=== PATIENT | female | born 1955 | race Caucasian/White ===

== ENCOUNTER → 2016-09-15 | Outpatient (CLI) | payer OTHER ==
[~2016-09-15] MED LIST: ASP81TEC PO; CPR500T PO; ESTR1TAB24 PO; EXEM25TA4 PO; MEDR2.5T6 PO; METO25TA6 PO; NEBI2.5T5 PO; OXYC-12 PO; TAMO20TA2 PO; VENL37.563 PO
--- OUTSIDE RECORDS SUMMARY | 2016-09-15 16:09 | XMS REPORT | Continuity of Care Document ---
Author Author [facility] Organization [facility] Address Unknown Phone Unavailable Care Team Providers Care Universal Grinder Operator Name Role Phone PHILIP WAYNE MD PCP Insurance Providers Payer Name Policy Number Subscriber Name Relationship [employer] [id number] Ansley Gayle 18 Self / Same As Patient Advance Directives Directive Response Recorded Date/Time Advance Directives No 07/15/12 11:30am Health Care Power of Motor Scooter Mechanic No 07/15/12 11:30am Organ Donor No 07/15/12 11:30am Problems No known problems or medical conditions. Medications Medication Dose Route Sig Days/Qty Instructions Order Date Discontinued Date Status Estradiol 1 Mg PO DAILY 02/27/10 04/21/10 Discontinued Medroxyprogesterone Acetate (Provera) 1 Each PO DAILY 02/27/1004/21 Discontinued Venlafaxine Hcl 37.5 Mg PO TWICE A DAY 04/21/10 Active Ciprofloxacin 1 Tab PO TWICE A DAY 14 Qty 05/22/11 07/06/12 Discontinued Nebivolol Hcl 1 Each PO DAILY 07/06/12 Active Tamoxifen Citrate 20 Mg PO DAILY 07/06/12 Active Aspirin 81 Mg PO DAILY 07/18/12 Active Oxycodone Hcl/Acetaminophen 1 Each PO NEEDED MAY TAKE 1-2 TABS BY MOUTH EVERY 4-6 HOURS NEEDED FOR PAIN. 07/18/12 Active Social History No social history. Hospital Discharge Instructions No hospital discharge instructions. Plan of Care No plan of care. Functional Status No functional status results. Allergies, Adverse Reactions, Alerts Allergen Type Severity Reaction Status Last Updated Cephalexin Allergy Mild NAUSEA/VOMITING Active 02/21/07 Immunizations Name Given Type Date of Influenza Vaccine 03/19/12 Historical Vital Signs No known vital signs results. Results No known relevant diagnostic tests, laboratory data and/or discharge summary. Procedures No known history of procedures. Encounters Encounter Location Date/Time Discharged Recurring Via [facility] 03/28/14 1:57pm
--- NOTE | 2016-09-16 20:21 | Diagnostic Imaging Report ---
Bilateral screening mammogram The current study was also evaluated with a Computer Aided Detection (CAD) system. INDICATION: Screening. No current complaints stated on the questionnaire. COMPARISON: 09/12/15. FINDINGS: The breasts are composed of heterogeneously dense parenchyma which may decrease mammographic sensitivity. Postsurgical changes and skin thickening are again noted in the left breast. There are scattered benign-appearing calcifications again noted. Allowing for technique and positional differences, no suspicious change is seen. IMPRESSION: No significant change. ACR BI-RADS Category 2: Benign findings. Result letter will be mailed to the patient. Note: At least 10% of breast cancer is not imaged by mammography. Dictated by: Dictated on workstation # [id number]
== END ==
LOC: RAD 14:33
PROVIDERS: ATTEND Internal Medicine Hematology & Oncology
DX: Z12.31 Encounter for screening mammogram for malignant neoplasm of breast (principal); C50.919 Malignant neoplasm of unspecified site of unspecified female breast
CPT/HCPCS: 77067

== ENCOUNTER → 2017-09-16 | Outpatient (CLI) | payer OTHER ==
--- NOTE | 2017-09-16 18:52 | Diagnostic Imaging Report ---
INDICATION: Routine screening. The current study was also evaluated with a Computer Aided Detection (CAD) system. Comparison is made with prior exams from 09/15/2016 and 09/12/2015. FINDINGS: Moderate parenchymal density is identified bilaterally. There are post therapeutic changes in the left breast with multiple surgical clips present. There are benign calcifications bilaterally. No dominant mass or malignant-appearing microcalcifications are seen. The axillae are unremarkable. IMPRESSION: No mammographic features suspicious for malignancy are identified. ACR BI-RADS Category 2: Benign findings. Result letter will be mailed to the patient. Note: At least 10% of breast cancer is not imaged by mammography. Dictated by: Dictated on workstation # [id number]
== END ==
LOC: RAD 14:11
PROVIDERS: ATTEND Internal Medicine Hematology & Oncology
DX: Z12.31 Encounter for screening mammogram for malignant neoplasm of breast (principal)
CPT/HCPCS: 77067

== ENCOUNTER → 2017-09-17 | Outpatient (CLI) | payer OTHER | LOC: EDSTATUS 13:52 → ONC 13:58 | PROVIDERS: ATTEND Internal Medicine Hematology & Oncology | DX: Z08 Encounter for follow-up examination after completed treatment for malignant neoplasm (principal); Z85.3 Personal history of malignant neoplasm of breast; M47.892 Other spondylosis, cervical region; Z92.21 Personal history of antineoplastic chemotherapy; Z92.3 Personal history of irradiation | CPT/HCPCS: 99213 ==

== ENCOUNTER → 2018-02-02 | Outpatient (CLI) | payer OTHER ==
[2018-02-02 05:20] LABS: MEAN PLATELET VOLUME 10.3 FL (7.4-10.4); RED BLOOD COUNT 4.19 10^6/uL (4.35-5.85); RED CELL DISTRIBUTION WIDTH 12.1 % (10.0-14.5); WHITE BLOOD COUNT 5.2 10^3/uL (4.3-11.0)
[2018-02-02 05:22] LABS: BILIRUBIN,URINE NEGATIVE (NEGATIVE); CLARITY,URINE CLEAR; COLOR,URINE YELLOW; GLUCOSE, URINE (UA) NEGATIVE (NEGATIVE); KETONES,URINE NEGATIVE (NEGATIVE); LEUKOCYTE ESTERASE ,URINE 1+ (NEGATIVE); NITRITE,URINE NEGATIVE (NEGATIVE); PH,URINE 6 (5-9); PROTEIN,URINE NEGATIVE (NEGATIVE); UROBILINOGEN,URINE NORMAL (NORMAL)
[2018-02-02 05:33] LABS: BACTERIA,URINE FEW /HPF; WBC,URINE RARE /HPF
[2018-02-02 05:34] LABS: SQUAMOUS EPITHELIAL CELL,UR 0-2 /HPF
[2018-02-02 05:39] LABS: ALANINE AMINOTRANSFERASE 18 U/L (0-55); ALBUMIN 4.2 GM/DL (3.2-4.5); ALKALINE PHOSPHATASE 56 U/L (40-136); BILIRUBIN,TOTAL 0.5 MG/DL (0.1-1.0); BUN/CREATININE RATIO 26; CALCIUM 9.2 MG/DL (8.5-10.1); CARBON DIOXIDE 23 MMOL/L (21-32); CHLORIDE 105 MMOL/L (98-107); CHOLESTEROL 212 MG/DL (< 200); CREATININE SERUM 0.73 MG/DL (0.60-1.30); GFR ESTIMATED > 60; GLUCOSE 113 MG/DL (70-105); HDL CHOLESTEROL 43 MG/DL (40-60); POTASSIUM 4.2 MMOL/L (3.6-5.0); SODIUM 138 MMOL/L (135-145); TOTAL PROTEIN 6.7 GM/DL (6.4-8.2); TRIGLYCERIDES 148 MG/DL (<150); VLDL CHOLESTEROL 30 MG/DL (5-40)
== END ==
LOC: LAB 05:02
PROVIDERS: ATTEND Family Medicine
DX: I10 Essential (primary) hypertension (principal); Z85.3 Personal history of malignant neoplasm of breast
CPT/HCPCS: 36415; 80053; 80061; 81000; 84443; 85027

== ENCOUNTER 2018-06-20 06:59 | Inpatient (IN) | payer OTHER ==
[2018-06-20] VITALS (14 sets, daily range): BP systolic 95–137; BP diastolic 45–75
[~2018-06-20] VITALS: Ht 170.2 cm; Wt 80.7 kg
[2018-06-20] MEDS ORDERED: DILTIAZEM 25 MG/5 ML INJ (CARDIZEM) VIAL ONE (07:13)
[2018-06-20 07:27] LABS: BASOPHILS % (AUTO) 1 % (0-10); EOSINOPHILS # (AUTO) 0.2 10^3/uL (0.0-0.3); EOSINOPHILS % (AUTO) 3 % (0-10); HEMATOCRIT 41 % (35-52); HEMOGLOBIN 14.4 G/DL (11.5-16.0); LYMPHOCYTES # (AUTO) 2.5 X 10^3 (1.0-4.0); LYMPHOCYTES % (AUTO) 37 % (12-44); MEAN CORPUSCULAR HEMOGLOBIN 33 PG (25-34); MEAN CORPUSCULAR HGB CONC 35 G/DL (32-36); MEAN CORPUSCULAR VOLUME 93 FL (80-99); MEAN PLATELET VOLUME 10.6 FL (7.4-10.4); MONOCYTES # (AUTO) 0.5 X 10^3 (0.0-1.0); MONOCYTES % (AUTO) 8 % (0-12); NEUTROPHILS # (AUTO) 3.4 X 10^3 (1.8-7.8); NEUTROPHILS % (AUTO) 51 % (42-75); PLATELET COUNT 225 10^3/uL (130-400); RED CELL DISTRIBUTION WIDTH 12.2 % (10.0-14.5); WHITE BLOOD COUNT 6.6 10^3/uL (4.3-11.0)
[2018-06-20] MEDS ORDERED: ASPIRIN 81 MG CHEW (CHILDREN'S ASA) PO ONE (07:30)
[2018-06-20] MEDS ORDERED: DILTIAZEM 25 MG/5 ML INJ (CARDIZEM) VIAL IVP ONE (07:30)
[2018-06-20] MEDS ORDERED: DILTIAZEM INJECTION 125 MG in NS (IVPB) 100 ML IV SCH (07:30)
[2018-06-20 07:42] LABS: INR 0.8 (0.8-1.4); PROTHROMBIN TIME PATIENT 11.4 SEC (12.2-14.7)
[2018-06-20 07:50] LABS: ALANINE AMINOTRANSFERASE 20 U/L (0-55); ALBUMIN 4.3 GM/DL (3.2-4.5); ALKALINE PHOSPHATASE 65 U/L (40-136); BILIRUBIN,TOTAL 0.5 MG/DL (0.1-1.0); BUN/CREATININE RATIO 17; CALCIUM 9.7 MG/DL (8.5-10.1); CARBON DIOXIDE 23 MMOL/L (21-32); CHLORIDE 105 MMOL/L (98-107); GFR ESTIMATED > 60; GLUCOSE 109 MG/DL (70-105); MAGNESIUM 2.2 MG/DL (1.8-2.4); POTASSIUM 4.1 MMOL/L (3.6-5.0); SODIUM 140 MMOL/L (135-145); TOTAL PROTEIN 6.6 GM/DL (6.4-8.2)
[2018-06-20] MEDS ORDERED: ENOXAPARIN 80 MG/0.8 ML (LOVENOX) SYR SC ONE (08:00)
--- NOTE | 2018-06-20 08:00 | Diagnostic Imaging Report ---
CHEST 1 VIEW, AP/PA ONLY Indication: Chest pain Comparison: 04/21/2010 Findings: No focal airspace disease in the visualized lungs. Please note that the posterior lower lobes are poorly evaluated by portable radiography. No pleural effusion or pneumothorax. Normal cardiomediastinal silhouette. There are surgical changes from ACDF in the cervical spine. Additional surgical clips present in the region of the left breast. Impression: No acute cardiopulmonary process by portable radiography. Dictated by: Dictated on workstation # [id number]
--- NOTE | 2018-06-20 08:06 | ED Cardiac General ---
History of Present Illness General Chief Complaint: Cardiac/General Problems Stated Complaint: CP Source: patient Exam Limitations: no limitations History of Present Illness Date Seen by Provider: Jun 20, 2018 Time Seen by Provider: 07:00 Initial Comments This 61-year-old white female presents with palpitations and shortness of breath that occurred last night precipitating her presentation to the emergency department this morning. Patient has had multiple episodes that have been self- limited in the past year. Patient denies previous documented cardiac disease. She had no significant chest pain, diaphoresis, nausea or vomiting. Allergies and Home Medications Allergies Coded Allergies: cephalexin (Unverified Allergy, Mild, NAUSEA/VOMITING, 02/21/07) Home Medications Exemestane 25 Mg Tablet, 25 MG PO DAILY, (Reported) Metoprolol Tartrate 25 Mg Tablet, 25 MG PO DAILY, (Reported) Venlafaxine Hcl 37.5 Mg Tab.osm.24, 37.5 MG PO BID, (Reported) Patient Home Medication List Home Medication List Reviewed: Yes Review of Systems Review of Systems Constitutional: No chills EENTM: No Double Vision Respiratory: Denies Cough; SOA at Rest Cardiovascular: Denies Chest Pain; Palpitations Gastrointestinal: Denies Abdominal Pain Genitourinary: Denies Burning Musculoskeletal: No back pain Skin: No change in color Psychiatric/Neurological: No Symptoms Reported Endocrine: No Symptoms Reported Hematologic/Lymphatic: No Symptoms Reported Past Wwdlsxt-Jweoly-Tetwet Hx Past Med/Social Hx: Reviewed Nursing Past Med/Soc Hx Patient Social History Recent Foreign Travel: No Contact w/Someone Who Travel: No Immunizations Up To Date Date of Influenza Vaccine: Mar 19, 2012 Past Medical History Reproductive Disorders: No Physical Exam Vital Signs Capillary Refill : Height, Weight, BMI Height: 5'7.00" Weight: 170lbs. oz. 77.790836lg; BMI Method:Stated General Appearance: No Apparent Distress, WD/WN HEENT: Normal ENT Inspection Neck: Normal Inspection Respiratory: Lungs Clear Cardiovascular: Tachycardia Gastrointestinal: Normal Bowel Sounds, Soft Extremity: Normal Inspection Neurologic/Psychiatric: Oriented x3, No Motor/Sensory Deficits, Normal Mood/ Affect Skin: Normal Color, Warm/Dry Progress/Results/Core Measures Results/Orders Lab Results Laboratory Tests Test 06/20/18 07:13 Range/Units White Blood Count 6.6 4.3-11.0 10^3/uL Red Blood Count 4.40 4.35-5.85 10^6/uL Hemoglobin 14.4 11.5-16.0 G/DL Hematocrit 41 35-52 % Mean Corpuscular Volume 93 80-99 FL Mean Corpuscular Hemoglobin 33 25-34 PG Mean Corpuscular Hemoglobin Concent 35 32-36 G/DL Red Cell Distribution Width 12.2 10.0-14.5 % Platelet Count 225 130-400 10^3/uL Mean Platelet Volume 10.6 H 7.4-10.4 FL Neutrophils (%) (Auto) 51 42-75 % Lymphocytes (%) (Auto) 37 12-44 % Monocytes (%) (Auto) 8 0-12 % Eosinophils (%) (Auto) 3 0-10 % Basophils (%) (Auto) 1 0-10 % Neutrophils # (Auto) 3.4 1.8-7.8 X 10^3 Lymphocytes # (Auto) 2.5 1.0-4.0 X 10^3 Monocytes # (Auto) 0.5 0.0-1.0 X 10^3 Eosinophils # (Auto) 0.2 0.0-0.3 10^3/uL Basophils # (Auto) 0.0 0.0-0.1 10^3/uL Prothrombin Time 11.4 L 12.2-14.7 SEC INR Comment 0.8 0.8-1.4 Activated Partial Thromboplast Time 29 24-35 SEC Sodium Level 140 135-145 MMOL/L Potassium Level 4.1 3.6-5.0 MMOL/L Chloride Level 105 98-107 MMOL/L Carbon Dioxide Level 23 21-32 MMOL/L Anion Gap 12 5-14 MMOL/L Blood Urea Nitrogen 15 7-18 MG/DL Creatinine 0.90 0.60-1.30 MG/DL Estimat Glomerular Filtration Rate > 60 BUN/Creatinine Ratio 17 Glucose Level 109 H 70-105 MG/DL Calcium Level 9.7 8.5-10.1 MG/DL Corrected Calcium 9.5 8.5-10.1 MG/DL Magnesium Level 2.2 1.8-2.4 MG/DL Total Bilirubin 0.5 0.1-1.0 MG/DL Aspartate Amino Transf (AST/SGOT) 15 5-34 U/L Alanine Aminotransferase (ALT/SGPT) 20 0-55 U/L Alkaline Phosphatase 65 40-136 U/L Myoglobin 46.0 10.0-92.0 NG/ML Troponin I < 0.30 <0.30 NG/ML Total Protein 6.6 6.4-8.2 GM/DL Albumin 4.3 3.2-4.5 GM/DL My Orders Orders - SANDI LOPEZ MD Ekg Tracing (06/20/18 07:01) Diltiazem Injection (Cardizem Injection) (06/20/18 07:13) Ns (Ivpb) (Sodium C... W/Diltiazem Injec (06/20/18 07:30) Diltiazem Injection (Cardizem Injection) (06/20/18 07:30) Cbc With Automated Diff (06/20/18 07:17) Magnesium (06/20/18 07:17) Chest 1 View, Ap/Pa Only (06/20/18 07:17) Cardiac Profile 1 (06/20/18 07:17) Comprehensive Metabolic Panel (06/20/18 07:17) Myoglobin Serum (06/20/18 07:17) Protime With Inr (06/20/18 07:17) Partial Thromboplastin Time (06/20/18 07:17) O2 (06/20/18 07:17) Monitor-Rhythm Ecg Trace Only (06/20/18 07:17) Lipid Panel (06/21/18 06:00) Aspirin Chewable Tablet (Baby Aspirin Ch (06/20/18 07:30) Saline Lock/Iv-Start (06/20/18 07:17) Enoxaparin Injection (Lovenox Injection) (06/20/18 08:00) Medications Given in ED Current Medications Medications Dose Ordered Sig/Sosa Route Start Time Stop Time Status Last Admin Dose Admin Aspirin 324 mg ONCE ONCE PO 06/20/18 07:30 06/20/18 07:31 DC 06/20/18 08:07 324 MG Diltiazem HCl 10 mg ONCE ONCE IVP 06/20/18 07:30 06/20/18 07:31 DC 06/20/18 07:19 10 MG Progress Progress Note : Time: 08:28 Progress Note Patient was given a Cardizem bolus of 10 mg and placed on a 10 mg per hour drip. Patient's RVR improved to a rate of approximately 100. The patient's Cardizem drip was increased to 15 mg per hour. Telephone consultation was undertaken with Drs. Simms and Oksana who will see her in the ICU. Departure Communication (Admissions) Time/Spoke to Admitting Phy: 08:29 Dr. Simms Time/Spoke to Consulting Phy: 08:30 Dr. Gandhi. Impression Primary Impression: Atrial fibrillation Qualified Codes: I48.0 - Paroxysmal atrial fibrillation Disposition: ADMITTED INPATIENT Condition: Improved Admissions Decision to Admit Reason: Admit from ER (General) Decision to Admit/Date: Jun 20, 2018 Time/Decision to Admit Time: 08:30 Departure-Patient Inst. Referrals: PHILIP WAYNE MD (PCP/Family) Primary Care Physician SANDI LOPEZ MD Jun 20, 2018 08:05
[2018-06-20] MEDS ORDERED: METO-370 PO (10:40)
[2018-06-20] MEDS ORDERED: MULT-35 PO (10:41)
--- NOTE | 2018-06-20 11:12 | Consultation-Cardiology ---
HPI-Cardiology Cardiology Consultation Date of Consultation 06/20/18 Date of Admission Time Seen by Provider: 11:07 Indication: atrial fibrillation, chest pain HPI 63 years old lady with history of palpitation, hypertension, was in her usual state of health until yesterday evening when she started having palpitation, wait until this morning without improvement, continue to have palpitation, reported some chest tightness and heaviness. Discomfort. Some shortness of breath and lightheadedness. No syncope. Reported that she had on-and-off palpitation in the past. No known history of atrial fibrillation, in the emergency room she was noted to be in atrial fibrillation with rapid ventricular response. She was started on Cardizem, currently feeling slightly better. Still having borderline tachycardia Home Medications & Allergies Allergies: Coded Allergies: cephalexin (Unverified Allergy, Mild, NAUSEA/VOMITING, 02/21/07) Home Medication List Reviewed: Yes QAF-Gxdsmi-Jtclzy Hx Patient Social History Marital Status: Employed/Student: employed Alcohol Use: Denies Use Recreational Drug Use: No Smoking Status: Former Smoker Recent Foreign Travel: No Recent Infectious Disease Expo: No Recent Hopitalizations: No Immunizations Up To Date Tetanus Booster (TDap): Unknown Date of Influenza Vaccine: Mar 19, 2012 Past Medical History past medical history as described below Family Medical History Family Medical Hx noncontributory to her current condition Review of Systems Constitutional: no symptoms reported, see HPI EENTM: see HPI, no symptoms reported Respiratory: see HPI, dyspnea on exertion, short of breath Cardiovascular: see HPI, chest pain, palpitations Gastrointestinal: no symptoms reported, see HPI Genitourinary: no symptoms reported, see HPI Musculoskeletal: see HPI Skin: no symptoms reported, see HPI Psychiatric/Neurological: No Symptoms Reported, See HPI Reviewed Test Results Reviewed Test Results Lab Laboratory Tests Test 06/20/18 07:13 Range/Units White Blood Count 6.6 4.3-11.0 10^3/uL Red Blood Count 4.40 4.35-5.85 10^6/uL Hemoglobin 14.4 11.5-16.0 G/DL Hematocrit 41 35-52 % Mean Corpuscular Volume 93 80-99 FL Mean Corpuscular Hemoglobin 33 25-34 PG Mean Corpuscular Hemoglobin Concent 35 32-36 G/DL Red Cell Distribution Width 12.2 10.0-14.5 % Platelet Count 225 130-400 10^3/uL Mean Platelet Volume 10.6 H 7.4-10.4 FL Neutrophils (%) (Auto) 51 42-75 % Lymphocytes (%) (Auto) 37 12-44 % Monocytes (%) (Auto) 8 0-12 % Eosinophils (%) (Auto) 3 0-10 % Basophils (%) (Auto) 1 0-10 % Neutrophils # (Auto) 3.4 1.8-7.8 X 10^3 Lymphocytes # (Auto) 2.5 1.0-4.0 X 10^3 Monocytes # (Auto) 0.5 0.0-1.0 X 10^3 Eosinophils # (Auto) 0.2 0.0-0.3 10^3/uL Basophils # (Auto) 0.0 0.0-0.1 10^3/uL Prothrombin Time 11.4 L 12.2-14.7 SEC INR Comment 0.8 0.8-1.4 Activated Partial Thromboplast Time 29 24-35 SEC Sodium Level 140 135-145 MMOL/L Potassium Level 4.1 3.6-5.0 MMOL/L Chloride Level 105 98-107 MMOL/L Carbon Dioxide Level 23 21-32 MMOL/L Anion Gap 12 5-14 MMOL/L Blood Urea Nitrogen 15 7-18 MG/DL Creatinine 0.90 0.60-1.30 MG/DL Estimat Glomerular Filtration Rate > 60 BUN/Creatinine Ratio 17 Glucose Level 109 H 70-105 MG/DL Calcium Level 9.7 8.5-10.1 MG/DL Corrected Calcium 9.5 8.5-10.1 MG/DL Magnesium Level 2.2 1.8-2.4 MG/DL Total Bilirubin 0.5 0.1-1.0 MG/DL Aspartate Amino Transf (AST/SGOT) 15 5-34 U/L Alanine Aminotransferase (ALT/SGPT) 20 0-55 U/L Alkaline Phosphatase 65 40-136 U/L Myoglobin 46.0 10.0-92.0 NG/ML Troponin I < 0.30 <0.30 NG/ML Total Protein 6.6 6.4-8.2 GM/DL Albumin 4.3 3.2-4.5 GM/DL Physical Exam Vital Signs Vital Signs - First Documented 06/20/18 07:00 Pulse 161 Resp 12 B/P (MAP) 129/57 (81) Pulse Ox 98 O2 Delivery Room Air Capillary Refill : Less Than 3 Seconds Height, Weight, BMI Height: 5'7.00" Weight: 180lbs. oz. 81.357262qr; BMI Method:Stated General Appearance: No Apparent Distress, WD/WN Eyes: Bilateral Eye Normal Inspection, Bilateral Eye PERRL, Bilateral Eye EOMI HEENT: PERRL/EOMI, TMs Normal, Normal ENT Inspection, Pharynx Normal Neck: Full Range of Motion, Normal Inspection, Non Tender, Supple, Carotid Bruit Respiratory: Chest Non Tender, Lungs Clear, Normal Breath Sounds, No Accessory Muscle Use, No Respiratory Distress Cardiovascular: No Edema, No Gallop, No JVD, No Murmur, Normal Peripheral Pulses, Irregularly Irregular, Tachycardia Gastrointestinal: Normal Bowel Sounds, No Organomegaly, No Pulsatile Mass, Non Tender, Soft Back: Normal Inspection, No CVA Tenderness, No Vertebral Tenderness Extremity: Normal Capillary Refill, Normal Inspection, Normal Range of Motion, Non Tender, No Calf Tenderness, No Pedal Edema Neurologic/Psychiatric: Alert, Oriented x3, No Motor/Sensory Deficits, Normal Mood/Affect Skin: Normal Color, Warm/Dry Lymphatic: No Adenopathy A/P-Cardiology Admission Diagnosis chest pain Palpitation Atrial fibrillation Hypertension Assessment/Plan Chest pain nonspecific etiology, probably secondary to tachycardia. Currently better with rate control. Continue monitoring Palpitation, secondary to atrial fibrillation Atrial fibrillation, appear to be subacute, probably started yesterday. History of palpitation in the past. Started on Cardizem drip, I will add Lovenox at this time, continue to monitor heart rate, planning for DOMONIQUE with electrical cardioversion if she does not convert tomorrow [id number] score of 2, yearly risk of stroke without oral anticoagulation is 2 percent, patient will need oral anticoagulation as an outpatient next Hypertension, maintained on metoprolol which will be restarted. Monitor blood pressure JIGNESH STONER MD Jun 20, 2018 11:12
[2018-06-20] MEDS ORDERED: ENOXAPARIN 100 MG/1 ML (LOVENOX) SYR SC SCH ×2 (11:15→12:00)
[2018-06-20] MEDS ORDERED: NS IV 1000 ML 1,000 ML ONE (11:38)
[2018-06-20] MEDS: DILTIAZEM INJECTION 125 MG in NS (IVPB) 100 ML IV SCH ×2 (11:48→17:01)
[2018-06-20] MEDS ORDERED: NS IV 1000 ML 1,000 ML IV SCH (12:00)
--- NOTE | 2018-06-20 13:41 | History & Physical-Hospitalist ---
History of Present Illness HPI/Chief Complaint Pt is a 63yoCF with a PMH of HTN who presented to the ER due to her heart racing. She states she has had episodes of this occurring over the past year but would resolve on it's own. This time it started last night at 9pm and did not resolve so this morning she decided to be evaluated in the ER. She has no known history of a-fib but was found to be in a-fib with RVR on arrival to the ER. She also had some slight chest pain that has improved with rate control. She denies a history of bleeding in the past. Source: patient Date Seen 06/20/18 Time Seen by a Provider: 13:37 Attending Physician Camacho Simms MD PCP Leona Welch MD Referring Physician Date of Admission Jun 20, 2018 at 08:29 Home Medications & Allergies Home Medications Reviewed patient Home Medication Reconciliation performed by pharmacy medication reconciliations food technician and/or nursing. Patients Allergies have been reviewed. Allergies Allergies Coded Allergies cephalexin (Unverified Allergy, Mild, NAUSEA/VOMITING, 02/21/07) Past Kprfmsb-Miistg-Hpyjyr Hx Past Med/Social Hx: Reviewed Nursing Past Med/Soc Hx Patient Social History Marrital Status: Employed/Student: employed Alcohol Use: Denies Use Recreational Drug Use: No Smoking Status: Former Smoker Recent Foreign Travel: No Contact w/other who traveled: No Recent Hopitalizations: No Recent Infectious Disease Expo: No Immunizations Up To Date Tetanus Booster (TDap): Unknown Pediatric: Yes Date of Influenza Vaccine: Mar 19, 2012 Past Medical History Surgeries: Lumpectomy, Orthopedic (hip and knee replacement) Cardiac: Hypertension Reproductive: No Sexually Transmitted Disease: No Musculoskeletal: Arthritis History of Blood Disorders: No Family History Reviewed Nursing Family Hx Cancer Review of Systems Constitutional: No chills, No fever EENTM: No blurred vision, No double vision, No nose congestion, No throat pain Respiratory: No cough, No dyspnea on exertion, No short of breath Cardiovascular: see HPI, chest pain; No edema; palpitations; No syncope Gastrointestinal: No abdominal pain, No constipation, No diarrhea, No nausea, No vomiting Genitourinary: No dysuria, No frequency Musculoskeletal: No joint pain, No muscle pain Skin: No lesions, No rash Psychiatric/Neurological: Denies Headache, Denies Numbness, Denies Tingling All Other Systems Reviewed Negative Unless Noted: Yes (Negative excepted noted.) Physical Exam Physical Exam Vital Signs Vital Signs - First Documented 06/20/18 06/20/18 07:00 07:10 Pulse 161 Resp 12 B/P (MAP) 129/57 (81) Pulse Ox 98 O2 Delivery Room Air O2 Flow Rate 2.00 Capillary Refill : Less Than 3 Seconds Height, Weight, BMI Height: 5'7.00" Weight: 180lbs. oz. 81.619053vx; BMI Method:Stated General Appearance: No Apparent Distress, WD/WN HEENT: PERRL/EOMI, Moist Mucous Membranes Neck: Non Tender, Supple Respiratory: Lungs Clear, No Respiratory Distress Cardiovascular: No Murmur, Irregularly Irregular, Tachycardia Gastrointestinal: Normal Bowel Sounds, Non Tender, Soft Extremity: Normal Capillary Refill, No Calf Tenderness Neurologic/Psychiatric: Alert, Oriented x3, Normal Mood/Affect Skin: Normal Color, Warm/Dry Results Results/Procedures Labs Patient resulted labs reviewed. Imaging: Reviewed Imaging Report Assessment/Plan Admission Diagnosis A-fib with RVR Admission Status: Inpatient Order (span 2 midnights) Reason for Inpatient Admission: cardizem gtt in ICU, cardiology consult, possible DOMONIQUE Diagnosis/Problems Diagnosis/Problems (1) Atrial fibrillation with RVR Status: Acute Assessment & Plan: New onset Cardizem gtt Cardiology consulted, appreciate recs Plan for DOMONIQUE tomorrow Lovenox for stroke ppx (2) Essential (primary) hypertension Assessment & Plan: Well controlled on cardizem trend CAMACHO SIMMS MD Jun 20, 2018 13:41
[2018-06-20] MEDS: ENOXAPARIN 80 MG/0.8 ML (LOVENOX) SYR SC SCH (20:59)
[2018-06-20] MEDS ORDERED: diphenhydrAMINE 25 MG TAB (BENADRYL) PO ONE ×2 (21:46→22:00)
[2018-06-20] MEDS ORDERED: diphenhydrAMINE 25 MG TAB (BENADRYL) PO PRN (22:15)
[2018-06-21] VITALS (10 sets, daily range): BP systolic 104–146; BP diastolic 48–79
[2018-06-21 03:54] LABS: BASOPHILS % (AUTO) 0 % (0-10); EOSINOPHILS # (AUTO) 0.2 10^3/uL (0.0-0.3); EOSINOPHILS % (AUTO) 4 % (0-10); HEMATOCRIT 40 % (35-52); HEMOGLOBIN 13.7 G/DL (11.5-16.0); LYMPHOCYTES # (AUTO) 2.4 X 10^3 (1.0-4.0); LYMPHOCYTES % (AUTO) 44 % (12-44); MEAN CORPUSCULAR HEMOGLOBIN 32 PG (25-34); MEAN CORPUSCULAR HGB CONC 34 G/DL (32-36); MEAN CORPUSCULAR VOLUME 93 FL (80-99); MEAN PLATELET VOLUME 10.6 FL (7.4-10.4); MONOCYTES # (AUTO) 0.4 X 10^3 (0.0-1.0); MONOCYTES % (AUTO) 6 % (0-12); NEUTROPHILS # (AUTO) 2.5 X 10^3 (1.8-7.8); NEUTROPHILS % (AUTO) 46 % (42-75); PLATELET COUNT 211 10^3/uL (130-400); RED BLOOD COUNT 4.29 10^6/uL (4.35-5.85); RED CELL DISTRIBUTION WIDTH 12.3 % (10.0-14.5); WHITE BLOOD COUNT 5.5 10^3/uL (4.3-11.0)
[2018-06-21 04:20] LABS: ALANINE AMINOTRANSFERASE 19 U/L (0-55); ALKALINE PHOSPHATASE 57 U/L (40-136); BILIRUBIN,TOTAL 0.6 MG/DL (0.1-1.0); BUN/CREATININE RATIO 16; CALCIUM 9.2 MG/DL (8.5-10.1); CARBON DIOXIDE 21 MMOL/L (21-32); CHLORIDE 108 MMOL/L (98-107); CHOLESTEROL 217 MG/DL (< 200); CREATININE SERUM 0.73 MG/DL (0.60-1.30); GFR ESTIMATED > 60; GLUCOSE 105 MG/DL (70-105); HDL CHOLESTEROL 40 MG/DL (40-60); POTASSIUM 4.2 MMOL/L (3.6-5.0); SODIUM 140 MMOL/L (135-145); TOTAL PROTEIN 6.5 GM/DL (6.4-8.2); TRIGLYCERIDES 231 MG/DL (<150); VLDL CHOLESTEROL 46 MG/DL (5-40)
--- NOTE | 2018-06-21 06:39 | Pulmonary Consultation ---
History of Present Illness History of Present Illness Date of Consultation 06/21/18 06:34 Time Seen by Provider: 06:34 Date of Admission Reason for Visit: atrial fibrillation, chest pain History of Present Illness 63yo with hx of Afib presented to ED secondary to palpitations and CP. She has had a previous episode 1yr prior however it resolved without medical intervention. In the ED she was found to be in Afib RVR. cardiology is consulted. CP improved with control of Afib rvr. She is currently in ICU Allergies and Home Medications Allergies Coded Allergies: cephalexin (Unverified Allergy, Mild, NAUSEA/VOMITING, 02/21/07) Home Medications Metoprolol Succinate 50 Mg Tab.er.24h, 50 MG PO DAILY, (Reported) Multivitamin 1 Each Tablet, 1 TAB PO DAILY, (Reported) Past Gdixdth-Dpvdqw-Knuhzy Hx Past Med/Social Hx: Reviewed Nursing Past Med/Soc Hx Patient Social History Alcohol Use: Denies Use Recreational Drug Use: No Smoking Status: Never a Smoker Recent Foreign Travel: No Contact w/Someone Who Travel: No Recent Infectious Disease Expo: No Recent Hopitalizations: No Immunizations Up To Date Tetanus Booster (TDap): Unknown PED Vaccines UTD: Yes Date of Influenza Vaccine: Apr 18, 2018 Seasonal Allergies Seasonal Allergies: No Past Medical History Surgeries: Yes (PORT PLACEMENT AND REMOVAL, LUMPECTOMY, R TKR, R THR, NECK, ECTOPIC PREGNAN) Lumpectomy, Orthopedic (hip and knee replacement) Respiratory: No Cardiac: Yes (POSSIBLE MITRAL VALVE) Hypertension Neurological: No Reproductive Disorders: No Sexually Transmitted Disease: No Gastrointestinal: No Musculoskeletal: Yes (ARTHRITIS IN NECK AND HIP, RIGHT KNEE) Arthritis Endocrine: No Psychosocial: No Integumentary: No Blood Disorders: No Family Medical History Reviewed Nursing Family Hx Cancer Sepsis Event Evaluation Height, Weight, BMI Height: 5'7.00" Weight: 178lbs. 0.0oz. 80.808411gh; 27.9 BMI Method:Stated Exam Exam Vital Signs Date Time Temp Pulse Resp B/P (MAP) Pulse Ox O2 Delivery O2 Flow Rate FiO2 06/21/18 06:00 72 14 118/60 (79) 97 Room Air 06/21/18 05:00 78 14 116/48 (70) 97 Room Air 06/21/18 04:00 97.6 Room Air 12/4/18 04:00 81 28 132/63 (86) 94 Room Air 06/21/18 04:00 Room Air 06/21/18 03:00 72 24 125/63 (83) 94 Room Air 06/21/18 02:00 72 13 117/61 (79) Room Air 06/21/18 01:00 74 12 133/70 (91) Room Air 06/21/18 00:56 73 06/21/18 00:00 74 15 104/49 (67) 94 Room Air 06/21/18 00:00 Room Air 06/20/18 23:35 98.2 06/20/18 23:00 71 12 105/54 (71) 94 Room Air 06/20/18 22:00 77 16 134/65 (88) 96 Room Air 06/20/18 21:00 73 23 131/66 (87) 99 Room Air 06/20/18 20:00 77 19 110/58 (75) 98 Room Air 06/20/18 20:00 97.7 Nasal Cannula 2.00 06/20/18 20:00 99 Nasal Cannula 2.00 06/20/18 19:00 86 13 136/73 (94) 97 Nasal Cannula 2.00 06/20/18 19:00 78 06/20/18 18:00 77 28 116/62 (80) 95 Nasal Cannula 2.00 06/20/18 17:00 85 39 137/71 (93) Nasal Cannula 2.00 06/20/18 16:54 78 06/20/18 16:00 99 Nasal Cannula 2.00 06/20/18 16:00 105 36 95/64 (74) 95 Nasal Cannula 2.00 06/20/18 15:00 112 17 106/65 (79) 96 Nasal Cannula 2.00 06/20/18 14:00 105 14 101/45 (63) 96 Nasal Cannula 2.00 06/20/18 13:00 96 06/20/18 13:00 97 16 105/59 (74) 96 Nasal Cannula 2.00 06/20/18 12:00 98.7 86 20 106/47 (66) 99 Nasal Cannula 2.00 06/20/18 11:30 102 16 103/75 (84) 98 Nasal Cannula 2.00 06/20/18 11:15 64 22 98 Nasal Cannula 2.00 06/20/18 11:00 88 20 97 Nasal Cannula 2.00 06/20/18 10:45 88 18 93 Nasal Cannula 2.00 06/20/18 10:25 Nasal Cannula 2.00 06/20/18 10:25 97.6 99 17 125/69 (87) 99 Nasal Cannula 2.00 06/20/18 10:19 120 23 127/68 (87) 95 Room Air 06/20/18 07:10 95 Nasal Cannula 2.00 06/20/18 07:00 161 12 129/57 (81) 98 Room Air I & O 06/21/18 07:00 Intake Total 2285 ml Output Total 4350 ml Balance -2065 ml Height & Weight Height: 5'7.00" Weight: 178lbs. 0.0oz. 80.796261gb; 27.9 BMI Method:Stated General Appearance: No Apparent Distress, WD/WN HEENT: PERRL/EOMI, Moist Mucous Membranes Neck: Non Tender, Supple Respiratory: Lungs Clear, No Respiratory Distress Cardiovascular: No Murmur, Irregularly Irregular, Tachycardia Capillary Refill: Less Than 3 Seconds Extremity: Normal Capillary Refill, No Calf Tenderness Neurologic/Psychiatric: Alert, Oriented x3, Normal Mood/Affect Skin: Normal Color, Warm/Dry Lymphatic: No Adenopathy Results Lab Laboratory Tests 06/20/18 07:13 06/21/18 03:09 Assessment/Plan Assessment/Plan Afib RVR - converted to NSR -Currently still on Cardizem gtt -Cardiology is following Probable BERRY -I discussed BERRY and associated complications with patient however she does not want any testing done for it. SOB probably associated with Afib RVR 10pk/yr hx of tobacco use I am going to sign off please call with any questions or concerns. CYRIL LAMBERT DO Jun 21, 2018 06:39
[2018-06-21] MEDS ORDERED: MULTIVIT W/MINERALS TAB (THERAGRAN M) PO SCH (07:00)
[2018-06-21] MEDS ORDERED: ATOR40TA PO (07:50)
[2018-06-21] MEDS ORDERED: APIX5TAB PO (07:50)
--- NOTE | 2018-06-21 07:51 | Discharge Inst-Simple/Standard ---
Discharge Inst-Standard Discharge Medications New, Converted or Re-Newed RX: Transmitted to Pharmacy Patient Instructions/Follow Up Plan of Care/Instructions/FU: Please continue to take your medications as written. Please follow up with your PCP Dr Welch and with Dr Gandhi. Activity as Tolerated: Yes Discharge Diet: Low Fat/Low Cholesterol, Cardiac Diet Return to The Hospital For: Chest pain, shortness of breath, racing heart rate, if you feel you are getting worse. CAMACHO STREET MD Jun 21, 2018 07:51
--- NOTE | 2018-06-21 07:53 | Cardiology Progress Note ---
Subjective Date Seen by Provider: Jun 21, 2018 Time Seen by Provider: 07:51 Subjective/Events-last exam Patient converted to sinus rhythm last night on Cardizem drip, feeling better, denied any chest pain or shortness of breath. No palpitation. Review of Systems General: No Chills, No Night Sweats, No Fatigue, No Malaise, No Appetite, No Other HEENT: No Head Aches, No Visual Changes, No Eye Pain, No Ear Pain, No Dysphasia , No Sinus Congestion, No Post Nasal Drip, No Sore Throat, No Other Pulmonary: No Dyspnea, No Cough, No Pleuritic Chest Pain, No Other Cardiovascular: No: Chest Pain, Palpitations, Orthopnea, Paroxysmal Noc. Dyspnea, Edema, Lt Headedness, Other Objective-Cardiology Exam Last Set of Vital Signs Vital Signs 06/21/18 06:00 Pulse 72 Resp 14 B/P (MAP) 118/60 (79) Pulse Ox 97 O2 Delivery Room Air Capillary Refill : Less Than 3 Seconds I&O Intake and Output 06/21/18 00:00 Intake Total 1805 ml Output Total 3150 ml Balance -1345 ml Intake Oral 1680 ml IV Total 125 ml Output Urine Total 3150 ml Daily Weight Change No General: Alert, Oriented X3, Cooperative HEENT: Atraumatic, PERRLA Neck: Supple, No JVD, No Thyromegaly Lungs: Clear to Auscultation, Normal Air Movement Heart: Regular Rate, Normal S1, Normal S2, No Murmurs Abdomen: Normal Bowel Sounds, Soft, No Tenderness, No Hepatosplenomegaly, No Masses Extremities: No Clubbing, No Cyanosis, No Edema, Normal Pulses, No Tenderness/ Swelling Skin: No Rashes, No Breakdown, No Significant Lesion Neuro: Normal Gait, Normal Speech, Strength at 5/5 X4 Ext, Normal Tone, Sensation Intact Psych/Mental Status: Mental Status NL, Mood NL Results Lab Laboratory Tests 06/21/18 03:09 A/P-Cardiology Admission Diagnosis chest pain Palpitation Atrial fibrillation Hypertension Assessment/Plan Chest pain nonspecific etiology, probably secondary to tachycardia, feeling better denied any chest pain at this time, cardiac enzymes were negative Palpitation, secondary to atrial fibrillation Paroxysmal atrial fibrillation, back in sinus rhythm on Cardizem drip, tolerating metoprolol 50 mg. Continue to monitor [id number] score of 2, yearly risk of stroke without oral anticoagulation is 2 percent, started on Eliquis Hypertension, continue on Toprol 50 mg daily Hyperlipidemia, started on Lipitor. Okay for discharge and follow-up as an outpatient Clinical Quality Measures DVT/VTE Risk/Contraindication: Risk Factor Score Per Nursin RFS Level Per Nursing on Admit: 2=Moderate JIGNESH STONER MD Jun 21, 2018 07:53
[2018-06-21] MEDS: ENOXAPARIN 80 MG/0.8 ML (LOVENOX) SYR SC SCH (08:47)
[2018-06-21] MEDS ORDERED: meTOproloL SUCCINATE 50 MG (TOPROL XL) TAB PO SCH (09:00)
[2018-06-21] MEDS ORDERED: NON-FORMULARY MEDICATION 1 EA EA (Multivitamin (Daily Multiple Vitamin) 1 TAB) PO SCH (09:00)
[2018-06-21] MEDS ORDERED: ATORVASTATIN 40 MG (LIPITOR) TABLET PO SCH (21:00)
--- NOTE | 2018-06-22 16:28 | Physician Query-Final Dx ---
RUSSELL LOVING 06/22/18 1628: Final Diagnosis Give Final Diagnosis Please give Final Diagnosis CAMACHO STREET MD 06/23/18 1406: Final Diagnosis Give Final Diagnosis Atrial fibrillation with RVR RUSSELL LOVING Jun 22, 2018 16:[address] MD Jun 23, 2018 14:06
== END 2018-06-21 09:30 | disposition home or self-care (01) | DRG 310 ==
LOC: EDUNIT# 06:59 → ER 07:00 → ICU 08:29
PROVIDERS: ADMIT Family Medicine; ATTEND Family Medicine
DX: I48.0 Paroxysmal atrial fibrillation (principal); I10 Essential (primary) hypertension; E78.5 Hyperlipidemia, unspecified; G47.33 Obstructive sleep apnea (adult) (pediatric); Z87.891 Personal history of nicotine dependence; Z96.641 Presence of right artificial hip joint; Z96.651 Presence of right artificial knee joint
CPT/HCPCS: 36415; 71045; 80053; 80061; 83735; 83874; 84443; 84484; 85025; 85610; 85730; 87081; 93005; 93041; 93306; 96372; 96374

== ENCOUNTER → 2018-09-20 | Outpatient (CLI) | payer OTHER ==
[~2018-09-20] MED LIST changes: +APIX5TAB PO; +ATOR40TA PO; +METO-370 PO; +MULT-35 PO
--- NOTE | 2018-09-20 20:18 | Diagnostic Imaging Report ---
INDICATION: Routine screening. Comparison is made with prior mammogram from 09/16/2017 and 09/15/2016. 2-D and 3-D bilateral screening mammography was performed with a Computer Aided Detection (CAD) system. FINDINGS: Scattered fibroglandular densities are identified bilaterally. Postlumpectomy changes in the upper left breast are again noted. There are calcifications bilaterally which appear benign. No mass or malignant appearing microcalcifications are seen. The axillae are unremarkable. IMPRESSION: No mammographic features suspicious for malignancy are identified. ACR BI-RADS Category 2: Benign findings. Result letter will be mailed to the patient. Note: At least 10% of breast cancer is not imaged by mammography. Dictated by: Dictated on workstation # [id number]
== END ==
LOC: RAD 14:01
PROVIDERS: ATTEND Family Medicine
DX: Z12.31 Encounter for screening mammogram for malignant neoplasm of breast (principal); Z85.3 Personal history of malignant neoplasm of breast
CPT/HCPCS: 77067

== ENCOUNTER 2019-05-16 09:05 | Outpatient (RCR) | payer OTHER ==
[~2019-05-16 09:05] MED LIST changes: -METO-370 PO; +METO50TA7 PO
== END 2019-08-14 | disposition home or self-care (01) ==
LOC: CARD 09:05
PROVIDERS: ATTEND Internal Medicine Cardiovascular Disease
DX: I48.0 Paroxysmal atrial fibrillation (principal); E78.2 Mixed hyperlipidemia; I10 Essential (primary) hypertension; Z87.891 Personal history of nicotine dependence
CPT/HCPCS: 93270

== ENCOUNTER → 2019-09-26 | Outpatient (CLI) | payer OTHER ==
--- NOTE | 2019-09-26 16:31 | Diagnostic Imaging Report ---
INDICATION: Routine screening. Comparison is made with prior mammogram from 12/05/2018 and 09/16/2017. 2-D and 3-D bilateral screening mammography was performed with CAD. Scattered fibroglandular densities are identified bilaterally. Lumpectomy changes in the left breast are again noted. Parenchymal pattern is stable. There are benign calcifications bilaterally. No mass or malignant-appearing microcalcifications are seen. Axillae are unremarkable. IMPRESSION: BI-RADS Category 2 No mammographic features suspicious for malignancy are microcalcifications ACR BI-RADS Category 2: Benign findings. Result letter will be mailed to the patient. Note: At least 10% of breast cancer is not imaged by mammography. Dictated by: Dictated on workstation # [id number]
== END ==
LOC: RAD 14:07
PROVIDERS: ATTEND Internal Medicine Hematology & Oncology
DX: Z12.31 Encounter for screening mammogram for malignant neoplasm of breast (principal); C50.812 Malignant neoplasm of overlapping sites of left female breast
CPT/HCPCS: 77067

== ENCOUNTER → 2020-09-30 | Outpatient (CLI) | payer OTHER ==
--- NOTE | 2020-09-30 18:49 | Diagnostic Imaging Report ---
INDICATION: Routine screening COMPARISON is made with prior mammograms 09/26/2019 and 09/20/2018. 2-D and 3-D bilateral screening mammography was performed with CAD. Both breasts are heterogeneously dense, limiting the sensitivity of mammography. Post-therapeutic changes of lumpectomy in the left breast are again noted. There are benign calcifications in both breasts. Axillae are unremarkable. IMPRESSION: BI-RADS Category 2 No mammographic features suspicious for malignancy are identified. ACR BI-RADS Category 2: Benign findings. Result letter will be mailed to the patient. Note: At least 10% of breast cancer is not imaged by mammography. Dictated by: Dictated on workstation # [id number]
== END ==
LOC: RAD 14:06
PROVIDERS: ATTEND Family Medicine
DX: Z12.31 Encounter for screening mammogram for malignant neoplasm of breast (principal); Z00.00 Encounter for general adult medical examination without abnormal findings
CPT/HCPCS: 77063; 77067

== ENCOUNTER 2021-06-24 04:51 | Inpatient (IN) | payer MEDICARE, OTHER ==
[~2021-06-24] VITALS: Ht 170.2 cm; Wt 78.4 kg
[2021-06-24] MEDS ORDERED: dilTIAZem DRIP PRE-MIX 125 ML IV SCH (05:00)
[2021-06-24] MEDS ORDERED: ASPIRIN 81 MG CHEW (CHILDREN'S ASA) PO ONE (05:00)
[2021-06-24] MEDS ORDERED: ENOXAPARIN 80 MG/0.8 ML (LOVENOX) SYR SC ONE (05:00)
[2021-06-24] MEDS ORDERED: ENOXAPARIN 100 MG/1 ML (LOVENOX) SYR SC ONE (05:00)
[2021-06-24 05:17] LABS: BASOPHILS # (AUTO) 0.1 10^3/uL (0.0-0.1); BASOPHILS % (AUTO) 1 % (0-10); EOSINOPHILS # (AUTO) 0.3 10^3/uL (0.0-0.3); EOSINOPHILS % (AUTO) 4 % (0-10); HEMATOCRIT 41 % (35-52); HEMOGLOBIN 14.1 g/dL (11.5-16.0); LYMPHOCYTES # (AUTO) 2.4 10^3/uL (1.0-4.0); LYMPHOCYTES % (AUTO) 31 % (12-44); MEAN CORPUSCULAR HEMOGLOBIN 33 pg (25-34); MEAN CORPUSCULAR HGB CONC 35 g/dL (32-36); MEAN CORPUSCULAR VOLUME 94 fL (80-99); MEAN PLATELET VOLUME 10.6 fL (9.0-12.2); MONOCYTES # (AUTO) 0.6 10^3/uL (0.0-1.0); MONOCYTES % (AUTO) 8 % (0-12); NEUTROPHILS # (AUTO) 4.4 10^3/uL (1.8-7.8); NEUTROPHILS % (AUTO) 56 % (42-75); PLATELET COUNT 217 10^3/uL (130-400); WHITE BLOOD COUNT 7.8 10^3/uL (4.3-11.0)
--- NOTE | 2021-06-24 05:19 | ED Cardiac General ---
History of Present Illness General Chief Complaint: Cardiac/General Problems Stated Complaint: A-FIB Nursing Triage Note: [facility] "afib problems" Source: patient (SOMEWHAT LIMITED HISTORIAN) History of Present Illness Date Seen by Provider: Jun 24, 2021 Time Seen by Provider: 04:48 Initial Comments PT ARRIVES VIA POV --WALKS IN ON HER OWN THROUGH EMS ENTRANCE STATES "A-FIB" STATES SHE WORK UP AT 0130 WITH "AFIB" PT CANNOT DESCRIBE HER SYMPTOMS PT IS NOT SURE IF IT WOKE HER UP OR IF SHE WAS ALREADY AWAKE WHEN SYMPTOMS BEGAN C/O SHORTNESS OF BREATH NO SWEATS NO CHEST PAIN NO SYNCOPE NO SWELLING IN LEGS/ FEET NO FEVER OR RECENT ILLNESS PT HAS HISTORY OF ATRIAL FIBRILLATION, CONVERTED WITH MEDICATIONS IN PAST STATES SHE HAS NOT HAD ANY PROBLEMS WITH IT "FOR A LONG TIME"--NO PROBLEMS SINCE SHE WAS LAST ADMITTED 06/20/2018 PT HAS NOT BEEN ON ELIQUIS FOR ABOUT A YEAR PT CURRENTLY TAKES METOPROL AND LISINOPRIL AND BABY ASPIRIN Allergies and Home Medications Allergies Coded Allergies: cephalexin (Unverified Allergy, Mild, NAUSEA/VOMITING, 02/21/07) Patient Home Medication List Home Medication List Reviewed: Yes Apixaban (Eliquis) 5 Mg Tablet, 5 MG PO BID Prescribed by: CAMACHO STREET on 06/21/18 0750 Atorvastatin Calcium (Lipitor) 40 Mg Tablet, 40 MG PO HS Prescribed by: CAMACHO STREET on 06/21/18 0750 Metoprolol Succinate (Metoprolol Succinate) 50 Mg Tab.er.24h, 50 MG PO DAILY, (Reported) Entered as Reported by: SLAVA MOSLEY on 06/20/18 1040 Multivitamin (Daily Multiple Vitamin) 1 Each Tablet, 1 TAB PO DAILY, (Reported) Entered as Reported by: SLAVA MOSLEY on 06/20/18 1041 Review of Systems Review of Systems Constitutional: no symptoms reported EENTM: No Symptoms Reported Respiratory: See HPI, Shortness of Air Cardiovascular: See HPI; Denies Chest Pain; Irregular Heart Rate; Denies Lightheadedness; Palpitations; Denies Syncope Gastrointestinal: No Symptoms Reported; Denies Nausea, Denies Vomiting Genitourinary: No Symptoms Reported Musculoskeletal: no symptoms reported Skin: no symptoms reported Psychiatric/Neurological: Anxiety Endocrine: No Symptoms Reported Hematologic/Lymphatic: No Symptoms Reported Past Owzgwum-Mnqqfz-Kmcjfo Hx Patient Social History Tobacco Use?: No Substance use?: No Alcohol Use?: No Immunizations Up To Date Tetanus Booster (TDap): Unknown PED Vaccines UTD: Yes First/Initial COVID19 Vaccinat: moderna Seasonal Allergies Seasonal Allergies: No Past Medical History Surgery/Hospitalization HX: afib, htn, breast ca removal, knee, hip, ectopic Surgeries: Yes (PORT PLACEMENT AND REMOVAL, LUMPECTOMY, R TKR, R THR, NECK, ECTOPIC PREGNAN) Breast, Lumpectomy, Orthopedic Respiratory: No Cardiac: Yes (POSSIBLE MITRAL VALVE DZ) Atrial Fibrillation, High Cholesterol, Hypertension Neurological: No Reproductive Disorders: No Sexually Transmitted Disease: No Genitourinary: No Gastrointestinal: No Musculoskeletal: Yes (ARTHRITIS IN NECK AND HIP, RIGHT KNEE) Arthritis Endocrine: No HEENT: No (GLASSES) Cancer: Yes Breast Did You Recieve Any Treatments: Yes What Type of Treatment Did You: Chemotherapy, Radiation, Surgical Intervention Psychosocial: No Integumentary: No Blood Disorders: No Family Medical History Cancer Physical Exam Vital Signs Vital Signs - First Documented 06/24/21 06/24/21 04:51 04:52 Pulse 144 Resp 18 B/P (MAP) 134/116 (122) Pulse Ox 100 O2 Delivery Room Air Capillary Refill : Less Than 3 Seconds Height, Weight, BMI Height: 5'7.00" Weight: 178lbs. 0.0oz. 80.471013ro; 28.00 BMI Method:Stated General Appearance: No Apparent Distress, WD/WN, Anxious Neck: Full Range of Motion Respiratory: Normal Breath Sounds, No Accessory Muscle Use, No Respiratory Distress, Other (MILDLY DYSPNEIC ) Cardiovascular: No Edema, No JVD, No Murmur, Normal Peripheral Pulses, Irregularly Irregular, Tachycardia Gastrointestinal: Non Tender, Soft Extremity: Normal Capillary Refill, Normal Inspection, No Pedal Edema Neurologic/Psychiatric: Alert, Oriented x3, No Motor/Sensory Deficits, tube room cashier II- XII Norm as Tested Skin: Normal Color, Warm/Dry; No Rash Progress/Results/Core Measures Results/Orders Lab Results Laboratory Tests Test 06/24/21 05:03 Range/Units White Blood Count 7.8 4.3-11.0 10^3/uL Red Blood Count 4.33 3.80-5.11 10^6/uL Hemoglobin 14.1 11.5-16.0 g/dL Hematocrit 41 35-52 % Mean Corpuscular Volume 94 80-99 fL Mean Corpuscular Hemoglobin 33 25-34 pg Mean Corpuscular Hemoglobin Concent 35 32-36 g/dL Red Cell Distribution Width 11.9 10.0-14.5 % Platelet Count 217 130-400 10^3/uL Mean Platelet Volume 10.6 9.0-12.2 fL Immature Granulocyte % (Auto) 0 % Neutrophils (%) (Auto) 56 42-75 % Lymphocytes (%) (Auto) 31 12-44 % Monocytes (%) (Auto) 8 0-12 % Eosinophils (%) (Auto) 4 0-10 % Basophils (%) (Auto) 1 0-10 % Neutrophils # (Auto) 4.4 1.8-7.8 10^3/uL Lymphocytes # (Auto) 2.4 1.0-4.0 10^3/uL Monocytes # (Auto) 0.6 0.0-1.0 10^3/uL Eosinophils # (Auto) 0.3 0.0-0.3 10^3/uL Basophils # (Auto) 0.1 0.0-0.1 10^3/uL Immature Granulocyte # (Auto) 0.0 0.0-0.1 10^3/uL Prothrombin Time 11.6 L 12.2-14.7 SEC INR Comment 0.8 0.8-1.4 Activated Partial Thromboplast Time 28 24-35 SEC Sodium Level 139 135-145 MMOL/L Potassium Level 3.7 3.6-5.0 MMOL/L Chloride Level 102 98-107 MMOL/L Carbon Dioxide Level 23 21-32 MMOL/L Anion Gap 14 5-14 MMOL/L Blood Urea Nitrogen 22 H 7-18 MG/DL Creatinine 0.81 0.60-1.30 MG/DL Estimat Glomerular Filtration Rate 71 BUN/Creatinine Ratio 27 Glucose Level 127 H 70-105 MG/DL Calcium Level 9.6 8.5-10.1 MG/DL Corrected Calcium 9.5 8.5-10.1 MG/DL Magnesium Level 2.0 1.6-2.4 MG/DL Total Bilirubin 0.8 0.1-1.0 MG/DL Aspartate Amino Transf (AST/SGOT) 16 5-34 U/L Alanine Aminotransferase (ALT/SGPT) 24 0-55 U/L Alkaline Phosphatase 66 40-136 U/L Total Creatine Kinase 103 29-168 U/L Creatine Kinase MB 2.2 <6.6 NG/ML Troponin I 0.101 H <0.028 NG/ML B-Type Natriuretic Peptide 90.8 <100.0 PG/ML Total Protein 6.4 6.4-8.2 GM/DL Albumin 4.1 3.2-4.5 GM/DL TSH Haakon Testing 2.76 0.35-4.94 UIU/ML My Orders Orders - PHILIP MAY DO Ed Iv/Invasive Line Start (06/24/21 04:54) Ekg Tracing (06/24/21 04:54) O2 (06/24/21 04:54) Monitor-Rhythm Ecg Trace Only (06/24/21 04:54) Bnp [place] (06/24/21 04:54) Cbc With Automated Diff (06/24/21 04:54) Comprehensive Metabolic Panel (06/24/21 04:54) Creatine Kinase (06/24/21 04:54) Creatine Kinase Mb (06/24/21 04:54) Magnesium (06/24/21 04:54) Protime With Inr (06/24/21 04:54) Partial Thromboplastin Time (06/24/21 04:54) Thyroid Analyzer (06/24/21 04:54) Troponin I [place] (06/24/21 04:54) Chest 1 View, Ap/Pa Only (06/24/21 04:54) Aspirin Chewable Tablet (Baby Aspirin Ch (06/24/21 05:00) Enoxaparin Injection (Lovenox Injection) (06/24/21 05:00) Diltiazem Injection (Cardizem Injection) (06/24/21 05:00) Diltiazem Drip Pre-Mix (Cardizem Drip Pr (06/24/21 05:00) Enoxaparin Injection (Lovenox Injection) (06/24/21 05:00) Ekg Tracing (06/24/21 05:08) Medications Given in ED Current Medications Medications Dose Ordered Sig/Sosa Route Start Time Stop Time Status Last Admin Dose Admin Aspirin 324 mg ONCE ONCE PO 06/24/21 05:00 06/24/21 05:01 DC 06/24/21 05:06 324 MG Diltiazem HCl 20 mg ONCE ONCE IVP 06/24/21 05:00 06/24/21 05:01 DC 06/24/21 05:06 20 MG Enoxaparin Sodium 90 mg ONCE ONCE SC 06/24/21 05:00 06/24/21 05:01 DC 06/24/21 05:09 90 MG Vital Signs/I&O 06/24/21 06/24/21 04:51 04:52 Pulse 144 Resp 18 B/P (MAP) 134/116 (122) Pulse Ox 100 100 O2 Delivery Room Air Room Air Blood Pressure Mean: 122 Progress Progress Note : Progress Note HR 130'S-150'S ON ARRIVAL GIVEN ASPIRIN AND LOVENOX GIVEN CARDIZEM BOLUS AND THEN PLACED ON A DRIP HEART RATE DOWN TO 80'S BP > 100 SYSTOLIC NO DETERIORATION IN PT'S CONDITION DURING ER STAY Initial ECG Impression Date: Jun 24, 2021 Initial ECG Impression Time: 04:50 Initial ECG Rate: 145 Initial ECG Impression: Atrial Fibrillation w/RVR EKG : EKG Time: 05:04 Rate: 83 Rhythm: A Fib/Flutter Diagnostic Imaging Comments CXR--PER RADIOLOGIST REPORT AT 0604 FINDINGS: The heart size, mediastinal configuration and pulmonary vascularity are within normal limits. The lungs are clear with no consolidating infiltrate. There is no significant effusion or pneumothorax. Surgical clips over the left chest wall and axilla. Plate and screws project over the lower cervical spine. IMPRESSION: 1. Negative for acute abnormality of the chest. Reviewed: Reviewed by Me Departure Communication (Admissions) [id number]--PAGED/SPOKE WITH DR. RAMIRES, DENTAL SECRETARY, ACCEPTS -PT FOR ADMIT Impression Primary Impression: Atrial fibrillation with RVR Additional Impression: Elevated troponin Disposition: ADMITTED INPATIENT Condition: Improved Admissions Decision to Admit Reason: Admit from ER (General) Decision to Admit/Date: Jun 24, 2021 Time/Decision to Admit Time: 05:50 Departure-Patient Inst. Referrals: PHILIP WAYNE MD (PCP/Family) Primary Care Physician PHILIP MAY DO Jun 24, 2021 05:18
[2021-06-24 05:33] LABS: ALBUMIN 4.1 GM/DL (3.2-4.5); INR 0.8 (0.8-1.4); POTASSIUM 3.7 MMOL/L (3.6-5.0); PROTHROMBIN TIME PATIENT 11.6 SEC (12.2-14.7)
[2021-06-24 05:34] LABS: CALCIUM 9.6 MG/DL (8.5-10.1)
[2021-06-24 05:35] LABS: TOTAL PROTEIN 6.4 GM/DL (6.4-8.2)
[2021-06-24 05:37] LABS: BILIRUBIN,TOTAL 0.8 MG/DL (0.1-1.0)
[2021-06-24 05:39] LABS: CREATININE SERUM 0.81 MG/DL (0.60-1.30)
[2021-06-24 05:49] LABS: CREATINE KINASE MB 2.2 NG/ML (<6.6)
--- NOTE | 2021-06-24 06:01 | Diagnostic Imaging Report ---
INDICATION: Atrial fibrillation. TECHNIQUE: Single view chest 5:19 AM. CORRELATION STUDY: 06/20/2018 FINDINGS: The heart size, mediastinal configuration and pulmonary vascularity are within normal limits. The lungs are clear with no consolidating infiltrate. There is no significant effusion or pneumothorax. Surgical clips over the left chest wall and axilla. Plate and screws project over the lower cervical spine. IMPRESSION: 1. Negative for acute abnormality of the chest. Dictated by: Dictated on workstation # [id number]
[2021-06-24 06:02] LABS: TSH (THYROID ANALYZER) 2.76 UIU/ML (0.35-4.94)
--- NOTE | 2021-06-24 06:39 | Tele-ICU Consult ---
History of Present Illness History of Present Illness Date Seen by Provider: Jun 24, 2021 Time Seen by Provider: 05:50 Date of Admission This virtual visit was conducted using real time audio/video. Thank you for asking us to see this patient for afib/RVR and elevated troponins. Recent events: Presented to ER. PMH: Converted afib, htn., HL, s/p/breast cancer. SH: smoking history N FH: Non-contributory ROS: as in HPI PE: VSS. Irreg.115/min. O2 sat 100% on RA HEENT: No obvious masses, adenopathy or JVD. Chest: clear to auscultation. CV: Irreg. S1 S2 No murmur or added sounds. Abd: Non-tender. Bowel sounds Y. : Unremarkable. Gaitan N. BRASS CLEANER/psychiatric: Grossly intact. No obvious focal findings. Extremities: edema. Capillary refill < 3 seconds. Skin: unremarkable. Results: Elevated BUN 22, BG 122, Trop 0.101.. CXR: nil acute . Available chart/ vitals / labs / images reviewed. Video assessment done using teleICU camera, rest of exam as per RN. A/P: Monitor for increasing oxygenation needs. Critical Care: critically ill patient. Cont. Diltiazem, Lovenox. Cards consult pending. Discussed with BRIANA Wolff. Asked RN to reach out to eICU if any questions or concerns later. Time spent with patient/coordination of care with other health professionals (mins): 40 Allergies and Home Medications Allergies Coded Allergies: cephalexin (Unverified Allergy, Mild, NAUSEA/VOMITING, 02/21/07) Home Medications Apixaban 5 Mg Tablet, 5 MG PO BID Prescribed by: CAMACHO STREET on 06/21/18 0750 Atorvastatin Calcium 40 Mg Tablet, 40 MG PO HS Prescribed by: CAMACHO STREET on 06/21/18 0750 Metoprolol Succinate 50 Mg Tab.er.24h, 50 MG PO DAILY, (Reported) Multivitamin 1 Each Tablet, 1 TAB PO DAILY, (Reported) Past Medical/Social/Family Hx Patient Social History Tobacco Use?: No Substance use?: No Alcohol Use?: No Immunizations Up To Date First/Initial COVID19 Vaccinat: moderna Tetanus Booster (TDap): Unknown Current Status status: No Advance Directives: No Primary Language: [place]ese Preferred Spoken Language: [place]ese Is interpretation needed?: No Review of Systems Constitutional: see HPI EENTM: see HPI Respiratory: see HPI Cardiovascular: see HPI Genitourinary: see HPI Musculoskeletal: see HPI Skin: see HPI Psychiatric/Neurological: See HPI All Other Systems Reviewed Negative Unless Noted: Yes Sepsis Event Evaluation Height, Weight, BMI Height: 5'7.00" Weight: 178lbs. 0.0oz. 80.809112sd; 28.00 BMI Method:Stated Exam Exam Patient acknowledged, consented, and participated in this virtual visit which was conducted using real time audio/video Vital Signs Date Time Temp Pulse Resp B/P (MAP) Pulse Ox O2 Delivery O2 Flow Rate FiO2 06/24/21 04:52 144 18 134/116 (122) 100 Room Air 06/24/21 04:51 100 Room Air Height & Weight Height: 5'7.00" Weight: 178lbs. 0.0oz. 80.835784bl; 28.00 BMI Method:Stated General Appearance: No Apparent Distress, WD/WN, Anxious Neck: Full Range of Motion Respiratory: Normal Breath Sounds, No Accessory Muscle Use, No Respiratory Distress, Other (MILDLY DYSPNEIC ) Cardiovascular: No Edema, No JVD, No Murmur, Normal Peripheral Pulses, Irregularly Irregular, Tachycardia Capillary Refill: Less Than 3 Seconds Peripheral Pulses: 1+ Dorsalis Pedis (R), 1+ Left Dors-Pedis (L) Extremity: Normal Capillary Refill, Normal Inspection, No Pedal Edema Neurologic/Psychiatric: Alert, Oriented x3, No Motor/Sensory Deficits, stator plate washer II- XII Norm as Tested Skin: Normal Color, Warm/Dry; No Rash Results Lab Laboratory Tests 06/24/21 05:03 Assessment/Plan Assessment/Plan See free text Critical Care: Critically Ill Patient SHARON MAYA MD Jun 24, 2021 06:39
[2021-06-24] MEDS ORDERED: NS IV 1000 ML 1,000 ML ONE (06:47)
[2021-06-24] MEDS ORDERED: ASPI-808 PO (07:00)
[2021-06-24] MEDS ORDERED: LISI20TA26 PO (07:00)
[2021-06-24] MEDS ORDERED: CATHETER FLUSH 10 ML SYR IV PRN (07:15)
[2021-06-24] MEDS: meTOproloL SUCCINATE 50 MG (TOPROL XL) TAB PO SCH (10:55)
[2021-06-24] MEDS: NS IV 1000 ML 1,000 ML IV SCH ×2 (10:56→21:09)
[2021-06-24] MEDS ORDERED: ASCO-341 PO (11:04)
[2021-06-24] MEDS ORDERED: ATOR40TA70 PO (11:04)
--- NOTE | 2021-06-24 11:09 | Consultation-Cardiology ---
HPI-Cardiology Cardiology Consultation Date of Consultation 06/24/21 Date of Admission Time Seen by Provider: 11:05 Indication: Atrial fibrillation HPI 66-year-old lady with history of paroxysmal atrial fibrillation, has been doing well until last night woke up around 2 in the morning with palpitation and feeling her heart racing. Came into the emergency room and noted to be in atrial fibrillation with rapid ventricular response. Patient was started on Cardizem drip, still feeling palpitation, still in atrial fibrillation, borderline tachycardic. No chest pain. Had mild elevation in troponin. Home Medications & Allergies Allergies: Coded Allergies: cephalexin (Unverified Allergy, Mild, NAUSEA/VOMITING, 02/21/07) Home Medication List Reviewed: Yes GFM-Jyhhnb-Iaxyke Hx Patient Social History Marital Status: Smoking Status: Never a Smoker Recent Hopitalizations: No Have you traveled recently?: No Alcohol Use?: Yes Immunizations Up To Date Tetanus Booster (TDap): Unknown Date of Influenza Vaccine: Apr 18, 2018 Past Medical History Discussed below Family Medical History Significant Family History: Cancer Family Medical Hx Non contributory Review of Systems-General Review of Systems Constitutional: see HPI EENTM: see HPI Respiratory: see HPI Cardiovascular: see HPI, palpitations Gastrointestinal: no symptoms reported, see HPI Genitourinary: see HPI Musculoskeletal: see HPI Skin: see HPI Psychiatric/Neurological: See HPI All Other Systems Reviewed Negative Unless Noted: Yes Reviewed Test Results Reviewed Test Results Lab Laboratory Tests Test 06/24/21 05:03 Range/Units White Blood Count 7.8 4.3-11.0 10^3/uL Red Blood Count 4.33 3.80-5.11 10^6/uL Hemoglobin 14.1 11.5-16.0 g/dL Hematocrit 41 35-52 % Mean Corpuscular Volume 94 80-99 fL Mean Corpuscular Hemoglobin 33 25-34 pg Mean Corpuscular Hemoglobin Concent 35 32-36 g/dL Red Cell Distribution Width 11.9 10.0-14.5 % Platelet Count 217 130-400 10^3/uL Mean Platelet Volume 10.6 9.0-12.2 fL Immature Granulocyte % (Auto) 0 % Neutrophils (%) (Auto) 56 42-75 % Lymphocytes (%) (Auto) 31 12-44 % Monocytes (%) (Auto) 8 0-12 % Eosinophils (%) (Auto) 4 0-10 % Basophils (%) (Auto) 1 0-10 % Neutrophils # (Auto) 4.4 1.8-7.8 10^3/uL Lymphocytes # (Auto) 2.4 1.0-4.0 10^3/uL Monocytes # (Auto) 0.6 0.0-1.0 10^3/uL Eosinophils # (Auto) 0.3 0.0-0.3 10^3/uL Basophils # (Auto) 0.1 0.0-0.1 10^3/uL Immature Granulocyte # (Auto) 0.0 0.0-0.1 10^3/uL Prothrombin Time 11.6 L 12.2-14.7 SEC INR Comment 0.8 0.8-1.4 Activated Partial Thromboplast Time 28 24-35 SEC Sodium Level 139 135-145 MMOL/L Potassium Level 3.7 3.6-5.0 MMOL/L Chloride Level 102 98-107 MMOL/L Carbon Dioxide Level 23 21-32 MMOL/L Anion Gap 14 5-14 MMOL/L Blood Urea Nitrogen 22 H 7-18 MG/DL Creatinine 0.81 0.60-1.30 MG/DL Estimat Glomerular Filtration Rate 71 BUN/Creatinine Ratio 27 Glucose Level 127 H 70-105 MG/DL Calcium Level 9.6 8.5-10.1 MG/DL Corrected Calcium 9.5 8.5-10.1 MG/DL Magnesium Level 2.0 1.6-2.4 MG/DL Total Bilirubin 0.8 0.1-1.0 MG/DL Aspartate Amino Transf (AST/SGOT) 16 5-34 U/L Alanine Aminotransferase (ALT/SGPT) 24 0-55 U/L Alkaline Phosphatase 66 40-136 U/L Total Creatine Kinase 103 29-168 U/L Creatine Kinase MB 2.2 <6.6 NG/ML Troponin I 0.101 H <0.028 NG/ML B-Type Natriuretic Peptide 90.8 <100.0 PG/ML Total Protein 6.4 6.4-8.2 GM/DL Albumin 4.1 3.2-4.5 GM/DL TSH Sharkey Testing 2.76 0.35-4.94 UIU/ML Physical Exam Physical Exam Vital Signs Vital Signs - First Documented 06/24/21 06/24/21 06/24/21 04:51 04:52 06:41 Temp 36.1 Pulse 144 Resp 18 B/P (MAP) 134/116 (122) Pulse Ox 100 O2 Delivery Room Air Capillary Refill : Less Than 3 Seconds Height, Weight, BMI Height: 5'7.00" Weight: 178lbs. 0.0oz. 80.564346bk; 27.13 BMI Method:Stated General Appearance: No Apparent Distress, WD/WN, Anxious Eyes: Bilateral Eye Normal Inspection, Bilateral Eye PERRL, Bilateral Eye EOMI HEENT: PERRL/EOMI, TMs Normal, Normal ENT Inspection, Pharynx Normal, Moist Mucous Membranes Neck: Full Range of Motion Respiratory: Normal Breath Sounds, No Accessory Muscle Use, No Respiratory Distress, Other (MILDLY DYSPNEIC ) Cardiovascular: No Edema, No JVD, No Murmur, Normal Peripheral Pulses, Irregularly Irregular, Tachycardia Gastrointestinal: Non Tender, Soft Back: Normal Inspection, No CVA Tenderness, No Vertebral Tenderness Extremity: Normal Capillary Refill, Normal Inspection, No Pedal Edema Neurologic/Psychiatric: Alert, Oriented x3, No Motor/Sensory Deficits, bottom buffer II- XII Norm as Tested Skin: Normal Color, Warm/Dry; No Rash Lymphatic: No Adenopathy A/P-Cardiology Admission Diagnosis Atrial fibrillation Type II myocardial infarction Hypertension Hyperlipidemia Assessment/Plan Atrial fibrillation with rapid ventricular response. Started on Cardizem drip, heart rate is better controlled. Has a history of paroxysmal atrial fibrillation, has converted on Cardizem drip in the past. I will continue on Cardizem drip and restart Toprol hoping for her to convert to sinus rhythm. I am planning to proceed with DOMONIQUE and cardioversion if she did not convert on her own. Mild elevation of troponin level, could be secondary to tachycardia, underlying coronary artery disease cannot be excluded. No acute EKG changes were noted. I will monitor the trend and her EKG. Planning for stress test or catheterization depend on the hospital course. Palpitation, reporting improvement. Continue to monitor [id number] score of 2, yearly risk of stroke without oral anticoagulation is 2 percent, Patient has stopped Eliquis and started on aspirin last year. I am planning to proceed with DOMONIQUE and cardioversion in the morning if she did not convert on her own and restarting Eliquis. For now she is maintained on Lovenox Hypertension, Monitor blood pressure Mild carotid stenosis, ultrasound was done August 2019. Continue to monitor Occasional smoking, stopped smoking in 1999. Continue with smoking cessation Hyperlipidemia, Maintained on Lipitor, monitor lipid JIGNESH STONER MD Jun 24, 2021 11:09
--- NOTE | 2021-06-24 12:07 | Pulmonary Progress Note ---
Subjective Subjective/Events-last exam The patient is resting comfortably when seen this morning. She notes that she is still having palpitations but denies any shortness of breath and is currently saturating well on room air. Review of Systems General: No Chills, No Night Sweats HEENT: No Head Aches, No Visual Changes Pulmonary: No Dyspnea, No Cough, No Pleuritic Chest Pain Cardiovascular: Palpitations; No: Chest Pain, Edema Gastrointestinal: No: Nausea, Vomiting, Abdominal Pain Genitourinary: No Dysuria, No Frequency Musculoskeletal: No: neck pain, arm pain Neurological: No: Weakness, Numbness, Incoordination Exam Exam Patient acknowledged, consented, and participated in this virtual visit which was conducted using real time audio/video Vital Signs Date Time Temp Pulse Resp B/P (MAP) Pulse Ox O2 Delivery O2 Flow Rate FiO2 06/24/21 09:30 131 14 97/65 96 06/24/21 09:15 107 41 148/93 96 06/24/21 09:00 120 26 117/109 95 06/24/21 08:45 112 14 92/81 93 06/24/21 08:33 36.7 06/24/21 08:30 114/66 06/24/21 08:15 102 16 124/71 94 Room Air 06/24/21 08:00 99 Room Air 06/24/21 08:00 114/71 06/24/21 07:45 93 11 120/82 99 Room Air 06/24/21 07:30 99 12 107/65 98 Room Air 06/24/21 07:15 98 12 67/48 97 Room Air 06/24/21 07:00 98 06/24/21 07:00 107 29 115/61 98 Room Air 06/24/21 06:41 36.1 98 20 130/73 97 Room Air 06/24/21 06:31 108 18 111/92 97 Room Air 06/24/21 06:31 108 18 111/92 97 Room Air 06/24/21 04:52 144 18 134/116 (122) 100 Room Air 06/24/21 04:51 100 Room Air Height & Weight Height: 5'7.00" Weight: 178lbs. 0.0oz. 80.351871bi; 27.13 BMI Method:Stated General Appearance: No Apparent Distress, WD/WN, Anxious HEENT: PERRL/EOMI, TMs Normal, Normal ENT Inspection, Pharynx Normal, Moist Mucous Membranes Neck: Full Range of Motion Respiratory: Normal Breath Sounds, No Accessory Muscle Use, No Respiratory Distress, Other (MILDLY DYSPNEIC ) Cardiovascular: No Edema, No JVD, No Murmur, Normal Peripheral Pulses, Irregularly Irregular, Tachycardia Capillary Refill: Less Than 3 Seconds Peripheral Pulses: 1+ Dorsalis Pedis (R), 1+ Left Dors-Pedis (L) Extremity: Normal Capillary Refill, Normal Inspection, No Pedal Edema Neurologic/Psychiatric: Alert, Oriented x3, No Motor/Sensory Deficits, automobile inspector II- XII Norm as Tested Skin: Normal Color, Warm/Dry; No Rash Lymphatic: No Adenopathy Results Lab Laboratory Tests 06/24/21 05:03 Assessment/Plan Assessment/Plan Atrial Fribrillation with RVR * Patient has a Hx of Paroxysmal A.fib. She had one episode of RVR in the past which she received a cardizem drip for and converted to sinus spontaneously * She is not on anticoagulation at home other than aspirin, CHADSVASC score of 2 * Appreciate cardiology consultation * Per cardiology, Continue cardizem drip and anticoagulate with Lovenox * DOMONIQUE and cardioversion tomorrow if patient continues in A.fib. her rate is currently borderline tachycardic. TIANNA BARRETT Jun 24, 2021 12:07
[2021-06-24] MEDS: dilTIAZem DRIP PRE-MIX 125 ML IV SCH (16:17)
[2021-06-24] MEDS: ENOXAPARIN 80 MG/0.8 ML (LOVENOX) SYR SC SCH (17:26)
[2021-06-25] MEDS: dilTIAZem DRIP PRE-MIX 125 ML IV SCH (04:53)
[2021-06-25] MEDS: NS IV 1000 ML 1,000 ML IV SCH (04:54)
[2021-06-25 05:12] LABS: BASOPHILS % (AUTO) 1 % (0-10); EOSINOPHILS # (AUTO) 0.2 10^3/uL (0.0-0.3); EOSINOPHILS % (AUTO) 4 % (0-10); HEMATOCRIT 42 % (35-52); HEMOGLOBIN 14.5 g/dL (11.5-16.0); LYMPHOCYTES # (AUTO) 1.8 10^3/uL (1.0-4.0); LYMPHOCYTES % (AUTO) 35 % (12-44); MEAN CORPUSCULAR HEMOGLOBIN 33 pg (25-34); MEAN CORPUSCULAR HGB CONC 34 g/dL (32-36); MEAN CORPUSCULAR VOLUME 96 fL (80-99); MEAN PLATELET VOLUME 10.6 fL (9.0-12.2); MONOCYTES # (AUTO) 0.4 10^3/uL (0.0-1.0); MONOCYTES % (AUTO) 7 % (0-12); NEUTROPHILS # (AUTO) 2.7 10^3/uL (1.8-7.8); NEUTROPHILS % (AUTO) 53 % (42-75); PLATELET COUNT 198 10^3/uL (130-400); WHITE BLOOD COUNT 5.1 10^3/uL (4.3-11.0)
[2021-06-25 05:22] LABS: ALBUMIN 4.3 GM/DL (3.2-4.5); CHLORIDE 104 MMOL/L (98-107); POTASSIUM 4.1 MMOL/L (3.6-5.0); SODIUM 139 MMOL/L (135-145)
[2021-06-25 05:23] LABS: CALCIUM 9.6 MG/DL (8.5-10.1)
[2021-06-25 05:24] LABS: GLUCOSE 113 MG/DL (70-105); TOTAL PROTEIN 7.1 GM/DL (6.4-8.2)
[2021-06-25 05:25] LABS: CARBON DIOXIDE 22 MMOL/L (21-32)
[2021-06-25 05:26] LABS: BILIRUBIN,TOTAL 0.8 MG/DL (0.1-1.0)
[2021-06-25 05:28] LABS: ALKALINE PHOSPHATASE 66 U/L (40-136); CREATININE SERUM 0.77 MG/DL (0.60-1.30); GFR ESTIMATED 75; PHOSPHORUS 3.4 MG/DL (2.3-4.7)
[2021-06-25 05:29] LABS: BUN/CREATININE RATIO 16
[2021-06-25 05:31] LABS: ALANINE AMINOTRANSFERASE 36 U/L (0-55)
[2021-06-25] MEDS: ENOXAPARIN 80 MG/0.8 ML (LOVENOX) SYR SC SCH (06:16)
--- NOTE | 2021-06-25 07:39 | Diagnostic Imaging Report ---
EXAMINATION: Chest radiograph, portable AP view. DATE: 06/25/2021 4:44 AM INDICATION: 66-year-old female, chest pain. COMPARISON: June 24, 2021. FINDINGS: There is cervical spine hardware. Heart size and mediastinal contours are unchanged. There are surgical clips projecting over the left chest. There is no identified pneumothorax. There is no large pleural effusion. There is no identified focal airspace consolidation. IMPRESSION: No identified acute cardiopulmonary abnormality. Dictated by: Dictated on workstation # [id number]
[2021-06-25] MEDS: meTOproloL SUCCINATE 50 MG (TOPROL XL) TAB PO SCH (08:10)
[2021-06-25] MEDS ORDERED: ASPIRIN 325 MG (5 GR) TABLET PO SCH (09:00)
--- NOTE | 2021-06-25 10:10 | Cardiology Discharge Summary ---
Discharge Summary Hospital Course Problems Reviewed?: Yes Hospital Course Date of Admission: Jun 24, 2021 at 05:50 Admission Diagnosis : Family Physician/Provider: Leona Welch MD Date of Discharge: 06/25/21 Discharge Diagnosis: [ ] Hospital Course: [ Atrial fibrillation with rapid ventricular response. Had a history of atrial fibrillation in the remote past. Converted to sinus rhythm on Cardizem drip. I restarted Xarelto and bolusing with amiodarone and starting amiodarone as an o utpatient. Did not require cardioversion. Mild elevation of troponin level, could be secondary to tachycardia, underlying coronary artery disease cannot be excluded. No acute EKG changes were noted. I will monitor the trend and her EKG. patient will need to have a stress test and will be scheduled as an outpatient Palpitation, reporting improvement. Continue to monitor [id number] score of 2, yearly risk of stroke without oral anticoagulation is 2 percent, Patient has stopped Eliquis and started on aspirin last year. I am planning to proceed with DOMONIQUE and cardioversion in the morning if she did not convert on her own and restarting Eliquis. For now she is maintained on Lovenox Hypertension, Monitor blood pressure Mild carotid stenosis, ultrasound was done August 2019. Continue to monitor Occasional smoking, stopped smoking in 1999. Continue with smoking cessation Hyperlipidemia, Maintained on Lipitor, monitor lipid] Labs and Pending Lab Test: Laboratory Tests 06/24/21 11:06: Troponin I 0.051H 06/25/21 05:00: Troponin I < 0.028, White Blood Count 5.1, Red Blood Count 4.41, Hemoglobin 14.5, Hematocrit 42, Mean Corpuscular Volume 96, Mean Corpuscular Hemoglobin 33, Mean Corpuscular Hemoglobin Concent 34, Red Cell Distribution Width 12.2, Platelet Count 198, Mean Platelet Volume 10.6, Immature Granulocyte % (Auto) 0, Neutrophils (%) (Auto) 53, Lymphocytes (%) (Auto) 35, Monocytes (%) (Auto) 7, Eosinophils (%) (Auto) 4, Basophils (%) (Auto) 1, Neutrophils # (Auto) 2.7, Lymphocytes # (Auto) 1.8, Monocytes # (Auto) 0.4, Eosinophils # (Auto) 0.2, Basophils # (Auto) 0.0, Immature Granulocyte # (Auto) 0.0, Sodium Level 139, Potassium Level 4.1, Chloride Level 104, Carbon Dioxide Level 22, Anion Gap 13, Blood Urea Nitrogen 12, Creatinine 0.77, Estimat Glomerular Filtration Rate 75, BUN/Creatinine Ratio 16, Glucose Level 113H, Calcium Level 9.6, Corrected Calcium 9.4, Phosphorus Level 3.4, Magnesium Level 2.0, Total Bilirubin 0.8, Aspartate Amino Transf (AST/SGOT) 23, Alanine Aminotransferase (ALT/SGPT) 36, Alkaline Phosphatase 66, Total Protein 7.1, Albumin 4.3 Microbiology 06/24/21 MRSA Screen - Final, Complete MRSA not isolated Home Meds Active Reported Emergen-C 1,000 mg Packet (Ascorbic Acid/Multivit-Min) 1,000 Mg Effpowdpkt 1,000 Mg PO DAILY Atorvastatin Calcium 40 Mg Tablet 40 Mg PO DAILY Aspirin 325 Mg Tablet 325 Mg PO DAILY Lisinopril 20 Mg Tablet 20 Mg PO DAILY Metoprolol Succinate 50 Mg Tab.er.24h 50 Mg PO DAILY Assessment/Pt DC Instructions Arrangement for follow-up with Dr. Gandhi's office in 1 week Discharge Diet: No Restrictions Discharge Physical Examination Allergies: Coded Allergies: cephalexin (Unverified Allergy, Mild, NAUSEA/VOMITING, 02/21/07) General Appearance: No Apparent Distress, WD/WN HEENT: PERRL/EOMI, TMs Normal, Normal ENT Inspection, Pharynx Normal Respiratory: Chest Non Tender, Lungs Clear, Normal Breath Sounds, No Accessory Muscle Use, No Respiratory Distress Cardiovascular: Regular Rate, Rhythm, No Edema, No Gallop, No JVD, No Murmur, Normal Peripheral Pulses Gastrointestinal: Normal Bowel Sounds, No Organomegaly, No Pulsatile Mass, Non Tender, Soft Extremity: Normal Capillary Refill, Normal Inspection, Normal Range of Motion, Non Tender, No Calf Tenderness, No Pedal Edema Skin: Normal Color, Warm/Dry Neurologic/Psychiatric: Alert, Oriented x3, No Motor/Sensory Deficits, Normal Mood/Affect, food safety officer II-XII Norm as Tested JIGNESH GANDHI MD Jun 25, 2021 10:10
[2021-06-25] MEDS ORDERED: AMIODARONE FOR BOLUS 150 MG in NS (IVPB) 100 ML IV ONE (10:15)
[2021-06-25 10:56] VITALS: BP 140/86
[2021-06-25] MEDS ORDERED: RIVA20TA PO (11:12)
[2021-06-25] MEDS ORDERED: AMIO200T65 PO (11:12)
--- NOTE | 2021-06-27 10:59 | Physician Query Clarification ---
PQ-Uncertain Diagnosis Admission/Discharge Admission Date: Jun 24, 2021 at 05:50 Discharge Date: Jun 25, 2021 at 12:45 Dr. Gandhi, The medical record reflects the following clinical scenario: History/Risk Factors: paroxysmal atrial fibrillation w/RVR, HTN Clinical Findings: Troponin 0.051 Treatment: Cardizem drip, monitoring Question: Is Type 2 VT a clinically valid diagnosis? Type 2 VT was documented under admission diagnosis and mild elevation of troponin level, could be secondary to tachycardia documented under the assessment in the cardiology consult with no further documentation in the medical record. Please document a response in Progress Note or Discharge Summary. 1. Yes, clinically valid, condition resolved. 2. No, condition ruled out. 3. Other, with explanation of clinical findings. 4. Undetermined, no explanation for clinical findings. PHYSICIAN RESPONSE Diagnosis clinically valid: No, conditon ruled out Please remember a lack of response to the above will prompt a phone page by [facility] staff. In responding to this query, please exercise your independent professional judgment. The purpose of this communication is to more accurately reflect the complexity of your patients condition. The fact that a question is asked does not imply that any particular answer is desired or expected. Thank you for your timely response to this clarification. Requestors name: Bee THIS PHYSICIAN QUERY FORM IS A PERMANENT PART OF THE MEDICAL RECORD BEE JEROME Jun 27, 2021 10:59 JIGNESH GANDHI MD Jun 28, 2021 05:31
== END 2021-06-25 12:45 | disposition home or self-care (01) | DRG 310 ==
LOC: EDUNIT# 04:51 → ER 04:53 → ICU 05:50
PROVIDERS: ADMIT Internal Medicine Cardiovascular Disease; ATTEND Internal Medicine Cardiovascular Disease
DX: I48.0 Paroxysmal atrial fibrillation (principal); I10 Essential (primary) hypertension; E78.00 Pure hypercholesterolemia, unspecified; E78.5 Hyperlipidemia, unspecified; F17.200 Nicotine dependence, unspecified, uncomplicated; R77.8 Other specified abnormalities of plasma proteins; Z96.651 Presence of right artificial knee joint; Z96.641 Presence of right artificial hip joint; Z85.3 Personal history of malignant neoplasm of breast; Z79.82 Long term (current) use of aspirin; Z88.1 Allergy status to other antibiotic agents
CPT/HCPCS: 36415; 71045; 80053; 82550; 82553; 83735; 83880; 84100; 84443; 84484; 85025; 85610; 85730; 87081; 93005; 93041; 93306; 96365; 96372

== ENCOUNTER → 2021-07-03 | Outpatient (CLI) | payer MEDICARE, OTHER ==
[~2021-07-03] MED LIST changes: +AMIO200T65 PO; +ASCO-341 PO; +ASPI-808 PO; +ATOR40TA70 PO; +CATHETER FLUSH 10 ML SYR IV PRN; +LISI20TA26 PO; +REGADENOSON 0.4 MG/5 ML SYR (LEXISCAN) IV ONE; +RIVA20TA PO
[2021-07-03 08:06] VITALS: BP 168/83
--- NOTE | 2021-07-03 13:17 | Cardiology Stress Test Report ---
Stress Test Report Date of Procedure/Referring: Date of Procedure: Jul 03, 2021 Dayna Yu Admitting Physician Leona Welch MD Indications: atrial fibrillation Baseline Heart Rate: 61 Baseline Blood Pressure: Blood Pressure Systolic: 168 Blood Pressure Diastolic: 83 Baseline Vitals Vital Signs Date Time Temp Pulse Resp B/P (MAP) Pulse Ox O2 Delivery O2 Flow Rate FiO2 07/03/21 08:06 61 168/83 (111) Baseline EKG: Baseline EKG: NSR Summary After explaining the procedure to the patient, she signed a consent and then brought to the stress nuclear laboratory. Patient received 0.4 mg Lexiscan for stress test, ECG, heart rate and blood pressure were monitored continuously. Resting and stress dose of radio tracer were injected, imaging was acquired and reviewed in short axis, horizontal long axis and vertical long axis views. TID: 0.88 SSS: 1 SDS: 1 EF: 59 1. Patient tolerated Lexiscan well 2. No significant ischemia or infarction on SPECT images 3. Normal left ventricular size, EF 59% JIGNESH STONER MD Jul 03, 2021 13:17
== END ==
LOC: CARD 07:00
PROVIDERS: ATTEND Physician Assistant
DX: I48.0 Paroxysmal atrial fibrillation (principal)
CPT/HCPCS: 78452; 93017; A9502

== ENCOUNTER → 2021-10-01 | Outpatient (CLI) | payer MEDICARE, OTHER ==
[~2021-10-01] MED LIST changes: -CATHETER FLUSH 10 ML SYR IV PRN; -REGADENOSON 0.4 MG/5 ML SYR (LEXISCAN) IV ONE
--- NOTE | 2021-10-01 18:01 | Diagnostic Imaging Report ---
INDICATION: Routine screening. COMPARISON: Prior mammograms from 09/30/2020 and 09/26/2019. EXAMINATION: 2D and 3D bilateral screening mammography was performed with CAD. The current study was also evaluated with a Computer Aided Detection (CAD) system. FINDINGS: Both breasts are heterogeneously dense, limiting the sensitivity of mammography. Postlumpectomy changes in the left breast are again noted. No mass or malignant-appearing microcalcifications are seen. Axillae are unremarkable apart from multiple clips in the left axilla. IMPRESSION: No mammographic features suspicious for malignancy are identified. ACR BI-RADS Category 2: Benign findings. Result letter will be mailed to the patient. Note: At least 10% of breast cancer is not imaged by mammography. Dictated by: Dictated on workstation # [id number]
== END ==
LOC: RAD 14:45
PROVIDERS: ATTEND Nurse Practitioner Family
DX: Z12.31 Encounter for screening mammogram for malignant neoplasm of breast (principal)
CPT/HCPCS: 77063; 77067

== ENCOUNTER → 2022-09-29 | Outpatient (CLI) | payer MEDICARE, OTHER ==
--- NOTE | 2022-09-29 16:46 | Diagnostic Imaging Report ---
INDICATION: Routine screening. COMPARISON: 10/01/2021 and 09/30/2020. TECHNIQUE: 2D and 3D bilateral screening mammography was performed with CAD. FINDINGS: Both breasts are heterogeneously dense, limiting the sensitivity of mammography. Post lumpectomy changes in the left breast are again noted. There are scattered benign calcifications. No mass or malignant-appearing microcalcifications are identified. The axillae are unremarkable. IMPRESSION: No mammographic features suspicious for malignancy are identified. ACR BI-RADS Category 2: Benign findings. Result letter will be mailed to the patient. Note: At least 10% of breast cancer is not imaged by mammography. Dictated by: Dictated on workstation # [id number]
== END ==
LOC: RAD 14:55
PROVIDERS: ATTEND Family Medicine
DX: Z12.31 Encounter for screening mammogram for malignant neoplasm of breast (principal)
CPT/HCPCS: 77063; 77067